=== PATIENT | female | born 1950 | race Hispanic/Latino ===

== ENCOUNTER 2021-08-28 19:13 | Inpatient (IN) | payer SELFPAY ==
[2021-08-28] VITALS (23 sets, daily range): BP systolic 73–149; BP diastolic 39–85; PULSE 84–100; RESP 13–22; TEMP 36.6–36.7; O2SAT 93–100
--- NOTE | ~2021-08-28 | XR_ITS ---
EXAMINATION: XR chest 1V portable EXAM DATE: 08/28/2021 21:44 INDICATION: Weakness, diarrhea and vomiting. Hypertension. TECHNIQUE: Portable AP frontal chest x-ray was obtained. There is no prior study for comparison. FINDINGS: The lungs are clear. There are no pleural effusions. The cardiomediastinal silhouette is within normal limits. There is no pneumothorax suspected. The bones and soft tissues are unremarkab le. IMPRESSION: No acute cardiopulmonary findings. Reviewed, dictated and finalized at location A. [employer]
--- NOTE | ~2021-08-28 | CT_ITS ---
EXAMINATION: CT abdomen pelvis wo con EXAM DATE: 08/28/2021 22:56 INDICATION: Nonlocalized abdominal pain. TECHNIQUE: Spiral CT of the abdomen and pelvis was performed without contrast. Axial, coronal and s agittal images of the abdomen and pelvis were reviewed. The dose-length product (DLP) for this exami nation was 328.96 mGy-cm. The exposure was tailored according to patient size (auto mA exposure cont rol), and iterative reconstruction (ASIR) was used as additional dose reduction technique. There is no prior study for comparison. FINDINGS: The liver, spleen, adrenal glands and pancreas are unremarkable. There are surgical clips in the gallbladder fossa. Some biliary duct dilation which is common finding following cholecystecto my. There is no nephrolithiasis or hydronephrosis. The uterus is not identified and has likely bee n surgically resected. The bladder is unremarkable. There is no retroperitoneal or pelvic lymphaden opathy. The appendix is normal. The stomach and small bowel are unremarkable. There is colonic fluid, corre late for diarrhea. No free intraperitoneal gas. The heart is normal in size. There are no perica rdial or pleural effusions. The lung bases are unremarkable. There are no osteoblastic or osteolyti c lesions identified. Moderate compression fracture of L1 which appears chronic. IMPRESSION: Colonic fluid, consider gastroenteritis or diarrhea. Reviewed, dictated and finalized at location A. [employer] MECH[employer]IC
--- NOTE | 2021-08-28 21:03 | PC.NURSE ---
Kittitian-speaking pt from [place], visiting family here. reports vomiting and diarrhea all day today. hx of colitis but ran out of medication and unsure of name. Photo of meds from [place] include Flagyl and Caolin/pectin. Leaving in 2 days to return home. No active vomiting/diarrhea.
--- NOTE | 2021-08-28 21:32 | PC.NURSE ---
While this RN in room with pt and registration, pt's BP noted as low. pt's laid supine and bp cuff rechecked multiple times. IV started and ED MD notified.
[2021-08-28] MEDS: SODIUM CHLORIDE 0.9% IV 2,000 ML/1,000 ML BAG 999 ML IV CONT (21:40)
[2021-08-28] MEDS: ONDANSETRON INJ 4 MG/2 ML VIAL IV PUSH (21:44)
[2021-08-28 21:54] LABS: Hematocrit 51.6 % (37.0-47.0); Hemoglobin 16.9 g/dL (12.0-15.0); Mean Corpuscular HGB Conc 32.8 g/dl (32-36); Mean Corpuscular Hemoglobin 29.3 pg (26-34); Mean Corpuscular Volume 89.4 fl (80-100); Mean Platelet Volume 10.9 fl (7.4-10.4); Platelet Count Result 279 k/mm3 (150-375); Red Blood Count 5.77 M/mm3 (4.2-5.4); Red Cell Distribution Width 14.1 % (11.5-14.5); White Blood Count 14.7 K/mm3 (4.5-10.0)
[2021-08-28 22:03] LABS: Lactic Acid Reflex 3.9 mmol/L (0.7-2.1)
[2021-08-28 22:04] LABS: Partial Thromboplastin Time 28.6 SECONDS (22.3-36.8); Prothrombin Time 12.6 Seconds (11.1-14.7)
[2021-08-28 22:07] LABS: Alanine Aminotransferase 54 U/L (4-35); Albumin Level 5.6 g/dL (3.5-5.1); Alkaline Phosphatase 120 U/L (38-126); Anion Gap 17 mmol/L (8-16); Aspartate Amino Transferase 57 U/L (14-36); Bilirubin,Total 0.7 mg/dL (0.2-1.3); Blood Urea Nitrogen 22 mg/dL (7-17); CRP 1.3 mg/dL (<1.0); Calcium 10.7 mg/dL (8.4-10.2); Carbon Dioxide 20 mmol/L (22-30); Chloride 101 mmol/L (98-107); Estimated CRCL calculation 18 ml/min; Estimated Glomerular Filt Rate 21; Glucose 195 mg/dL (65-110); Potassium 4.4 mmol/L (3.4-5.0); Sodium 138 mmol/L (137-145)
[2021-08-28 22:11] LABS: Band Neutrophils Percent 13 % (0-6); Lymphocytes Absolute Manual 0.73 K/mm3 (1.1-4.5); Monocytes Absolute Manual 0.58 K/mm3 (0.1-0.90); Monocytes Percent Manual 4 % (3-9); Neutrophils Absolute Manual 13.37 K/mm3 (1.7-7.2); Neutrophils Percent Manual 78 % (46-73); Platelet Estimate Adequate (Adequate); Total Cells Counted 100
--- NOTE | 2021-08-28 23:23 | PC.NURSE ---
2000 ml normal saline bolus given as ordered.
[2021-08-29] VITALS (47 sets, daily range): BP systolic 72–129; BP diastolic 50–99; PULSE 71–102; RESP 11–22; TEMP 36.6–37.2; O2SAT 93–100; BMI 27.3
[2021-08-29 00:04] LABS: Add Urine Microscopic? YES; Appearance Urine Cloudy (Clear); Bacteria Urine Trace /hpf; Bilirubin Urine Negative (Negative); Blood Urine 1+ (Negative); Calcium Oxalate Crystals Urine Present /hpf; Color Urine Yellow (Yellow); Glucose Urine UA 1+ mg/dL (Negative); Hyaline Casts Urine 50+ /lpf; Ketones Urine Negative (Negative); Leukocyte Esterase Ur Negative LEU/UL (Negative); Mucus Urine Moderate /lpf; Nitrate Urine Negative (Negative); Protein Urine 2+ mg/dL (Negative); Specific Grav Ur 1.011 (1.001-1.035); Squamous Epithelial Cell Urine Many /hpf (Few); Urobilinogen Urine Negative mg/dL (<2.0); WBC Urine 16-20 /hpf
[2021-08-29 00:51] LABS: Reflex Lactic Acid Yes or No Add Lactic
--- NOTE | 2021-08-29 01:13 | PM.IMHP ---
H&P: HPI History of Present Illness Date/Time: 08/29/21 01:13 Chief Complaint: Nausea/vomiting/diarrhea Narrative: This is a 71-year-old female with past medical history significant for colitis, patient resides in [facility], she is here is pending in the holidays with her sister who is at bedside. Patient has been in her usual state of health for the most part when she began having nausea, vomiting and diarrhea, several bowel movements a day and has now become incontinent of liquid watery like stools she denies any fevers, any rigors ,any chills, no dizziness, no lightheadedness, no syncope or near syncope. Preliminary workup was significant for creatinine of 2.3, WBC of 13,000, lactic acid of 3.9 AST/ALT 57/54 a urinalysis showed numerous wbc's present. Patient denies any cough, any sputum production, shortness of breath. A chest x-ray was clear. Decision has been made to place the patient in observation for further evaluation, management and treatment. Review of Systems Review of Systems: Nausea ,vomiting, diarrhea. Constitutional: Constitutional: Denies chills, Denies fatigue, Denies fever(s), Denies malaise, Denies night sweats, Denies poor appetite and Denies weakness Eyes: Eyes: Denies change in vision ENT: Denies dysphagia, Denies dizziness, Denies nasal congestion, Denies nasal discharge, Denies nasal obstruction and Denies odynophagia Cardiovascular: Cardiovascular: Denies radiating jaw, neck or arm pain, Denies palpitations, Denies dyspnea on exertion and Denies orthopnea Respiratory: Respiratory: Denies chest congestion, Denies cough, Denies excessive phlegm production and Denies dyspnea Gastrointestinal: Gastrointestinal: Reports abdominal pain, Denies melena, Denies dysphagia, Denies dyspepsia, Denies heartburn, Reports diarrhea, Reports nausea and Reports vomiting Genitourinary: Genitourinary: Denies dysuria Musculoskeletal: Musculoskeletal: Denies myalgias, Denies arthralgias and Denies joint swelling Integumentary/Breasts: Skin/Breast: Denies rash Neurologic: Denies dizziness, Denies focal weakness and Denies Sensory deficit (Neuro) Endocrine: Endocrine: Denies polyphagia, Denies polydipsia, Denies polyuria and Denies palpitations Hematologic/Lymphatic: Hematologic/Lymphatic: Reports no additional hematologic/lymphatic complaints and Reports as per HPI Allergic/Immunologic: Allergic/Immunologic: Reports no additional allergic/immunologic complaints and Reports as per HPI [facility] Family History Family History (Updated 08/29/21 @ 04:25 by Yoanna Prasad MD) Mother Diabetes mellitus Comments Patient resides in [facility] No history of tobacco or illicit drug use or alcohol. Meds Home Medications and Allergies Home Medications Medication Instructions Recorded Confirmed Type Unable to Obtain Home Medications 08/28/21 08/28/21 History Allergies Allergy/AdvReac Type Severity Reaction Status Date / Time No Known Allergies Allergy Verified 08/28/21 21:02 Vital Signs Vital Signs - 24 hr 08/28/21 19:40 08/28/21 21:00 08/28/21 21:01 Temperature 97.9 F Pulse Rate 89 Respiratory Rate 18 Blood Pressure 149/81 H 130/85 Pulse Oximetry 100 99 99 08/28/21 21:15 08/28/21 21:16 08/28/21 21:20 Temperature Pulse Rate 93 95 95 Respiratory Rate 21 H 17 21 H Blood Pressure 73/39 L 82/59 L Pulse Oximetry 97 97 95 08/28/21 21:23 08/28/21 21:24 08/28/21 21:30 Temperature Pulse Rate 96 93 93 Respiratory Rate 20 20 22 H Blood Pressure 74/45 L 95/54 L Pulse Oximetry 96 96 97 08/28/21 21:31 08/28/21 21:45 08/28/21 21:46 Temperature Pulse Rate 94 89 87 Respiratory Rate 21 H 18 18 Blood Pressure 103/55 L Pulse Oximetry 96 94 95 08/28/21 22:00 08/28/21 22:15 08/28/21 22:30 Temperature Pulse Rate 84 87 92 Respiratory Rate 14 15 16 Blood Pressure Pulse Oximetry 97 99 98 08/28/21 22:53 08/28/21 23:00 08/28/21 23:15 Temperature Pulse Ra
--- NOTE | 2021-08-29 01:22 | ED.NAVMDI ---
HPI - Nausea/Vomiting/Diarrhea General Chief complaint: Nausea/Vomiting/Diarrhea Stated complaint: n/v/d Time Seen by Provider: 08/28/21 21:20 History of Present Illness HPI Narrative: Patient is a 71-year-old female who presents ER with nausea/vomiting/diarrhea. Began over the last 24 hours. Family reports innumerable episodes of diarrhea and vomiting. Reports had history of colitis 3 months ago. Patient is currently in town from [facility] for the holidays. Patient has no reports of abdominal pain only intermittent cramping with the diarrhea. No syncope but does feel weak and lightheaded. Related Data Home Medications Medication Instructions Recorded Confirmed Unable to Obtain Home Medications 08/28/21 08/28/21 Allergies Allergy/AdvReac Type Severity Reaction Status Date / Time No Known Allergies Allergy Verified 08/28/21 21:02 Review of Systems Review of Systems: All systems reviewed & are unremarkable except as noted in HPI and below Constitutional: Constitutional: Denies chills, Reports fatigue, Denies fever(s) and Reports weakness ENT: Denies nasal congestion and Denies sore throat Cardiovascular: Cardiovascular: Denies chest pain, Denies rapid heart rate and Denies radiating jaw, neck or arm pain Respiratory: Respiratory: Denies cough and Denies dyspnea Gastrointestinal: Gastrointestinal: Reports abdominal pain, Reports diarrhea, Reports nausea and Reports vomiting Genitourinary: Genitourinary: Denies nocturia, Denies dysuria and Denies urinary incontinence [facility] Past Medical History Medical History (Updated 08/29/21 @ 07:16 by Mateo Kim MD) Borderline diabetes Colitis Surgical History Surgical History (Updated 08/29/21 @ 07:16 by Mateo Kim MD) History of cholecystectomy History of hysterectomy Family History Family History (Updated 08/29/21 @ 04:25 by Yoanna Prasad MD) Mother Diabetes mellitus Social History Social History (Updated 08/29/21 @ 07:11 by Mateo Kim MD) Smoking status: Never smoker Exam Narrative: GENERAL: Well-appearing, well-nourished, and in no acute distress. HEAD: Normocephalic, atraumatic. ENT: Mucous membranes moist. CHEST: Clear to auscultation. No respiratory distress. HEART: Regular rate and rhythm. Normal peripheral pulses. ABDOMEN: Soft, very mild epigastric and left upper quadrant tenderness without guarding nondistended, normal active bowel sounds. EXTREMITIES: Normal range of motion. No edema. SKIN: Warm, dry, no rash. NEURO: Alert and oriented x3. PSYCH: Normal mood and affect. Course Course Emergency Course: Patient and daughter informed of diagnosis and treatment plan. Patient received IV fluid boluses, she is also receiving IV antibiotics for colitis. Vital Signs Vital signs: Vital Signs Temperature 97.9 F 08/28/21 19:40 Pulse Rate 89 08/28/21 19:40 Respiratory Rate 18 08/28/21 19:40 Blood Pressure 149/81 H 08/28/21 19:40 Pulse Oximetry 100 08/28/21 19:40 Temperature 98.0 F 08/29/21 05:01 Pulse Rate 89 08/29/21 05:01 Respiratory Rate 15 08/29/21 05:01 Blood Pressure 81/52 L 08/29/21 05:01 Pulse Oximetry 95 08/29/21 05:01 MDM - Nausea/Vomiting/Diarrhea Lab Data Result diagrams: 08/28/21 21:41 08/28/21 21:41 Labs: Lab Results 08/28/21 08/28/21 08/28/21 Range/Units 21:41 21:41 21:41 WBC 14.7 H (4.5-10.0) K/mm3 RBC 5.77 H (4.2-5.4) M/mm3 Hgb 16.9 H (12.0-15.0) g/dL Hct 51.6 H (37.0-47.0) % MCV 89.4 (80-100) fl MCH 29.3 (26-34) pg MCHC 32.8 (32-36) g/dl RDW 14.1 (11.5-14.5) % Plt Count 279 (150-375) k/mm3 MPV 10.9 H (7.4-10.4) fl Immature Gran % (Auto) Not Reportable Neut % (Auto) Not Reportable Lymph % (Auto) Not Reportable Woods % (Auto) Not Reportable Eos % (Auto) Not Reportable Baso % (Auto) Not Reportable Lymph # (Auto) Not Reportabl
[2021-08-29 01:23] LABS: Lactic Acid 1.3 mmol/L (0.7-2.1)
[2021-08-29] MEDS: metroNIDAZOLE 500 MG/ISO 100ML 500 MG/100 ML BAG 100 MG IVPB ×5 (01:39→23:02)
[2021-08-29] MEDS: levoFLOXacin 500 MG/D5W 100 ML 500 MG/100 ML BAG 100 MG IVPB (02:44)
[2021-08-29] MEDS: SODIUM CHLORIDE 0.9% IV 1,000 ML 125 ML IV CONT ×3 (04:47→21:15)
--- NOTE | 2021-08-29 05:30 | PC.NURSE ---
Pt has had NO episodes of nvd since arrival in ED.
--- NOTE | 2021-08-29 07:20 | PC.NURSE ---
Dr. Moran called and reports that the ED doctor should manage that patient and that he is refusing.
--- NOTE | 2021-08-29 07:50 | PC.NURSE ---
Dr. Moran contacted due to patient's blood pressure, states She must go to the ICU for that and the ICU doctor needs to be called.
[2021-08-29] MEDS: PANTOPRAZOLE SODIUM IV 40 MG VIAL IV PUSH (08:37)
[2021-08-29] MEDS: HEPARIN SODIUM 5,000 UNITS/ML VIAL 5000 UNITS SUB-Q ×2 (08:37→21:25)
[2021-08-29] MEDS: SODIUM CHLORIDE 0.9% IV 1,000 ML 1000 ML (08:37)
--- NOTE | 2021-08-29 11:29 | PM.IMPN ---
Progress Note: A&P Assessment and Plan (1) Nausea vomiting and diarrhea: Code(s): R11.2 - Nausea with vomiting, unspecified; R19.7 - Diarrhea, unspecified Status: Acute Assessment and Plan: CT of abdomen and pelvis reviewed Supportive care Clear liquid diet and advanced as tolerated (2) Colitis: Code(s): K52.9 - Noninfective gastroenteritis and colitis, unspecified Status: Acute Assessment and Plan: Patient has history of colitis unclear which type Patient has been placed on levo and Flagyl Continue to monitor (3) ELVIN (acute kidney injury): Code(s): N17.9 - Acute kidney failure, unspecified Status: Acute Assessment and Plan: Likely to be pre renal azotemia IV fluids ongoing Repeat BMP in the morning Renal ultrasound in a.m. (4) Dehydration: Code(s): E86.0 - Dehydration Status: Acute Assessment and Plan: Push oral fluids as needed Receiving IV fluids (5) Urinary tract infection: Code(s): N39.0 - Urinary tract infection, site not specified Status: Acute Assessment and Plan: Patient has been started on levofloxacin Await cultures Subjective Date/time seen: 08/29/21 11:29 Patient was seen during the morning rounds today. Mild abdominal pain, mild nausea, no vomiting. No chest pain, no shortness of breaths. Mood stable. Review of Systems Constitutional: Constitutional: Denies chills, Denies fatigue, Denies fever(s), Denies malaise, Denies night sweats, Denies poor appetite and Denies weakness Eyes: Eyes: Denies change in vision ENT: Denies dysphagia, Denies dizziness, Denies nasal congestion, Denies nasal discharge, Denies nasal obstruction and Denies odynophagia Cardiovascular: Cardiovascular: Denies radiating jaw, neck or arm pain, Denies palpitations, Denies dyspnea, Denies dyspnea on exertion and Denies orthopnea Respiratory: Respiratory: Denies chest congestion, Denies cough, Denies excessive phlegm production, Denies dyspnea and Denies dyspnea on exertion Gastrointestinal: Gastrointestinal: Reports abdominal pain, Denies melena, Denies dysphagia, Denies dyspepsia, Denies heartburn, Reports diarrhea, Reports nausea, Denies odynophagia and Reports vomiting Genitourinary: Genitourinary: Denies dysuria Musculoskeletal: Musculoskeletal: Denies myalgias, Denies arthralgias and Denies joint swelling Integumentary/Breasts: Skin/Breast: Denies rash Neurologic: Denies dizziness, Denies focal weakness, Denies Sensory deficit (Neuro) and Denies weakness Endocrine: Endocrine: Denies fatigue, Denies polyphagia, Denies polydipsia, Denies polyuria and Denies palpitations Hematologic/Lymphatic: Hematologic/Lymphatic: Reports no additional hematologic/lymphatic complaints and Reports as per HPI Allergic/Immunologic: Allergic/Immunologic: Reports no additional allergic/immunologic complaints and Reports as per HPI Exam Const: General: cooperative, comfortable, no acute distress, well developed, alert, awake, Physically active and tired appearing; No acute distress Nutritional Appearance: average body habitus Orientation/consciousness: patient oriented x3 HENMT: Head: normal to inspection, normocephalic and atraumatic Ears: hearing grossly normal bilaterally General nose exam: Normal external nose present Face and sinus: normal facial exam Mouth: Yes dry mucous membranes Teeth and gingiva: dentition normal Eyes: General: appearance normal, both eyes and all related structures Alignment and Position: alignment normal Sclera: sclerae normal Pupils: Equal, round and reactive pupils present EOM: EOMs intact bilaterally Neck: Neck: normal visual inspection, full ROM, no lymphadenopathy, supple and no JVD Thyroid: thyroid normal Lymphatic: no lymphadenopathy noted Resp: Effort & Inspection: normal respiratory effort and able to speak in complete sentences Auscultation: clear to auscultation bilaterally, no crackles, no rales,
[2021-08-29 12:18] LABS: Glucose Point of Care 82 mg/dl (65-105)
--- NOTE | 2021-08-29 13:33 | PC.NURSE ---
Patient boarding in ED - admission completed. Sister Connie at bedside and is able to translate for patient at this time.
[2021-08-29 16:56] LABS: Glucose Point of Care 92 mg/dl (65-105)
--- NOTE | 2021-08-29 18:34 | PC.NURSE ---
This patient, Virginia Farah, was received from [ ED ] on 08/29/21 at 1640. Patient/family oriented to unit policies and routines
[2021-08-29 22:31] LABS: Glucose Point of Care 104 mg/dl (65-105)
[2021-08-30] VITALS (9 sets, daily range): BP systolic 128–151; BP diastolic 64–78; PULSE 62–80; RESP 16–21; TEMP 35.8–36.8; O2SAT 96–100
[2021-08-30] MEDS: metroNIDAZOLE 500 MG/ISO 100ML 500 MG/100 ML BAG 100 MG IVPB ×3 (05:35→17:08)
[2021-08-30 06:25] LABS: Basophils Percent Auto 0.8 % (0.2-1.2); Eosinophils Absolute Auto 0.1 K/mm3 (0-0.3); Hematocrit 38.7 % (37.0-47.0); Hemoglobin 12.6 g/dL (12.0-15.0); Immature Granulocyte Absolute 0.01 K/mm3 (0.00-0.031); Immature Granulocyte Percent A 0.3 % (0-0.5); Lymphocytes Absolute Auto 1.56 K/mm3 (0.9-3.2); Lymphocytes Percent Auto 39.4 % (18.3-44.2); Mean Corpuscular HGB Conc 32.6 g/dl (32-36); Mean Corpuscular Hemoglobin 29.8 pg (26-34); Mean Corpuscular Volume 91.5 fl (80-100); Mean Platelet Volume 10.7 fl (7.4-10.4); Monocytes Absolute Auto 0.4 K/mm3 (0.1-0.6); Monocytes Percent Auto 9.3 % (2.6-8.5); Neutrophils Absolute Auto 1.9 K/mm3 (1.3-6.7); Neutrophils Percent Auto 47.2 % (45.5-73.1); Platelet Count Result 164 k/mm3 (150-375); Red Blood Count 4.23 M/mm3 (4.2-5.4); Red Cell Distribution Width 14.4 % (11.5-14.5)
[2021-08-30] MEDS: SODIUM CHLORIDE 0.9% IV 1,000 ML 125 ML IV CONT ×2 (06:40→22:11)
[2021-08-30 06:50] LABS: Alanine Aminotransferase 29 U/L (4-35); Albumin Level 3.4 g/dL (3.5-5.1); Alkaline Phosphatase 67 U/L (38-126); Anion Gap 2 mmol/L (8-16); Aspartate Amino Transferase 34 U/L (14-36); Bilirubin,Total 0.3 mg/dL (0.2-1.3); Blood Urea Nitrogen 13 mg/dL (7-17); Calcium 8.5 mg/dL (8.4-10.2); Carbon Dioxide 21 mmol/L (22-30); Chloride 114 mmol/L (98-107); Estimated CRCL calculation 50 ml/min; Estimated Glomerular Filt Rate > 60; Glucose 86 mg/dL (65-110); Potassium 3.7 mmol/L (3.4-5.0); Sodium 137 mmol/L (137-145)
[2021-08-30 07:48] LABS: Glucose Point of Care 78 mg/dl (65-105)
[2021-08-30] MEDS: HEPARIN SODIUM 5,000 UNITS/ML VIAL 5000 UNITS SUB-Q ×2 (09:49→22:11)
[2021-08-30 12:14] LABS: Glucose Point of Care 102 mg/dl (65-105)
[2021-08-30] MEDS: PANTOPRAZOLE SODIUM IV 40 MG VIAL IV PUSH (13:05)
--- NOTE | 2021-08-30 13:22 | PC.NURSE ---
This patient, Virginia Vasquez, was transferred to [facility] on 08/30/21 at 1322. Personal belongings sent with patient. Report given to DENZEL Parmar. Appropriate documentation sent with patient.
--- NOTE | 2021-08-30 13:29 | PM.IMPN ---
Progress Note: A&P Assessment and Plan (1) Nausea vomiting and diarrhea: Code(s): R11.2 - Nausea with vomiting, unspecified; R19.7 - Diarrhea, unspecified Status: Acute Assessment and Plan: CT of abdomen and pelvis reviewed Supportive care Clear liquid diet and advanced as tolerated (2) Colitis: Code(s): K52.9 - Noninfective gastroenteritis and colitis, unspecified Status: Acute Assessment and Plan: Patient has history of colitis unclear which type Patient has been placed on levo and Flagyl Continue to monitor (3) ELVIN (acute kidney injury): Code(s): N17.9 - Acute kidney failure, unspecified Status: Acute Assessment and Plan: Likely to be pre renal azotemia IV fluids ongoing Repeat BMP in the morning Renal ultrasound in a.m. (4) Dehydration: Code(s): E86.0 - Dehydration Status: Acute Assessment and Plan: Push oral fluids as needed Receiving IV fluids (5) Urinary tract infection: Code(s): N39.0 - Urinary tract infection, site not specified Status: Acute Assessment and Plan: Patient has been started on levofloxacin Await cultures. 08/30/2021 Patient was much better. Will continue with current treatment. Start p.o. diet. Transfer to floor. If stays okay discharge home in the morning. Subjective Date/time seen: 08/30/21 13:29 Patient was seen during the morning rounds today. Diarrhea is slightly better. No shortness of breath or chest pain. Mood stable. Review of Systems Constitutional: Constitutional: Denies chills, Denies fatigue, Denies fever(s), Denies malaise, Denies night sweats, Denies poor appetite and Denies weakness Eyes: Eyes: Denies change in vision ENT: Denies dysphagia, Denies dizziness, Denies nasal congestion, Denies nasal discharge, Denies nasal obstruction and Denies odynophagia Cardiovascular: Cardiovascular: Denies radiating jaw, neck or arm pain, Denies palpitations, Denies dyspnea, Denies dyspnea on exertion and Denies orthopnea Respiratory: Respiratory: Denies chest congestion, Denies cough, Denies excessive phlegm production, Denies dyspnea and Denies dyspnea on exertion Gastrointestinal: Gastrointestinal: Reports abdominal pain, Denies melena, Denies dysphagia, Denies dyspepsia, Denies heartburn, Reports diarrhea, Reports nausea, Denies odynophagia and Reports vomiting Genitourinary: Genitourinary: Denies dysuria Musculoskeletal: Musculoskeletal: Denies myalgias, Denies arthralgias and Denies joint swelling Integumentary/Breasts: Skin/Breast: Denies rash Neurologic: Denies dizziness, Denies focal weakness, Denies Sensory deficit (Neuro) and Denies weakness Endocrine: Endocrine: Denies fatigue, Denies polyphagia, Denies polydipsia, Denies polyuria and Denies palpitations Hematologic/Lymphatic: Hematologic/Lymphatic: Reports no additional hematologic/lymphatic complaints and Reports as per HPI Allergic/Immunologic: Allergic/Immunologic: Reports no additional allergic/immunologic complaints and Reports as per HPI Exam Const: General: cooperative, comfortable, no acute distress, well developed, alert, awake, Physically active and tired appearing; No acute distress Nutritional Appearance: average body habitus Orientation/consciousness: patient oriented x3 HENMT: Head: normal to inspection, normocephalic and atraumatic Ears: hearing grossly normal bilaterally General nose exam: Normal external nose present Face and sinus: normal facial exam Mouth: Yes dry mucous membranes Teeth and gingiva: dentition normal Eyes: General: appearance normal, both eyes and all related structures Alignment and Position: alignment normal Sclera: sclerae normal Pupils: Equal, round and reactive pupils present EOM: EOMs intact bilaterally Neck: Neck: normal visual inspection, full ROM, no lymphadenopathy, supple and no JVD Thyroid: thyroid normal Lymphatic: no lymphadenopathy noted Resp: Effort & Inspectio
--- NOTE | 2021-08-30 16:28 | PC.NURSE ---
This patient, Virginia Vasquez, was received from [facility] on 08/30/21 at 1345. Patient/family oriented to unit policies and routines
[2021-08-30 16:41] LABS: Glucose Point of Care 95 mg/dl (65-105)
[2021-08-30] MEDS: levoFLOXacin 500 MG/D5W 100 ML 500 MG/100 ML BAG 100 MG IVPB (22:11)
[2021-08-30 22:58] LABS: Glucose Point of Care 87 mg/dl (65-105)
[2021-08-31] MEDS: metroNIDAZOLE 500 MG/ISO 100ML 500 MG/100 ML BAG 100 MG IVPB ×5 (00:16→23:50)
[2021-08-31 06:00] VITALS: BP 127/56; PULSE 66; RESP 20; TEMP 36.3; O2SAT 98
[2021-08-31 07:55] LABS: Glucose Point of Care 90 mg/dl (65-105)
[2021-08-31 08:00] VITALS: BP 148/75; PULSE 72; RESP 20; TEMP 36.4; O2SAT 97
--- NOTE | 2021-08-31 09:29 | PM.DS ---
DS: Admitting Diagnosis Discharge Date 08/31/2021 Admitting Diagnosis Gastroenteritis UTI DS: Discharge Diagnosis Discharge Diagnosis (1) Nausea vomiting and diarrhea: Code(s): R11.2 - Nausea with vomiting, unspecified; R19.7 - Diarrhea, unspecified Status: Acute Assessment and Plan: CT of abdomen and pelvis reviewed Supportive care Clear liquid diet and advanced as tolerated (2) Colitis: Code(s): K52.9 - Noninfective gastroenteritis and colitis, unspecified Status: Acute Assessment and Plan: Patient has history of colitis unclear which type Patient has been placed on levo and Flagyl Continue to monitor (3) ELVIN (acute kidney injury): Code(s): N17.9 - Acute kidney failure, unspecified Status: Acute Assessment and Plan: Likely to be pre renal azotemia IV fluids ongoing Repeat BMP in the morning Renal ultrasound in a.m. (4) Dehydration: Code(s): E86.0 - Dehydration Status: Acute Assessment and Plan: Push oral fluids as needed Receiving IV fluids (5) Urinary tract infection: Code(s): N39.0 - Urinary tract infection, site not specified Status: Acute Assessment and Plan: Patient has been started on levofloxacin Await cultures. 08/30/2021 Patient was much better. Will continue with current treatment. Start p.o. diet. Transfer to floor. If stays okay discharge home in the morning. DS: Summary Hospital Course Reason for hospitalization: Gastroenteritis UTI Hospital Course: Patient is 69 years old female was admitted complains any nausea vomiting or diarrhea. Patient was dehydrated. Patient was given IV fluid. Patient was found to have gastroenteritis and urine tract infection. Patient was given Levaquin and Flagyl. Patient urine culture shows patient with E coli infection. Today patient is feeling better so patient discharged home stable condition, follow-up primary care physician outpatient scheduled next week. Status at Discharge Cognitive/behavioral status at discharge: Stable Functional status at discharge: independent ambulation Overall status at discharge: patient is back to baseline Time Spent with Patient Time attestation: Total time spent providing and/or coordinating discharge services: Time spent: Less than 30 minutes Exam Const: General: cooperative, comfortable, no acute distress, well developed, alert, awake, Physically active and tired appearing; No acute distress Nutritional Appearance: average body habitus Orientation/consciousness: patient oriented x3 HENMT: Head: normal to inspection, normocephalic and atraumatic Ears: hearing grossly normal bilaterally General nose exam: Normal external nose present Face and sinus: normal facial exam Mouth: Yes dry mucous membranes Teeth and gingiva: dentition normal Eyes: General: appearance normal, both eyes and all related structures Alignment and Position: alignment normal Sclera: sclerae normal Pupils: Equal, round and reactive pupils present EOM: EOMs intact bilaterally Neck: Neck: normal visual inspection, full ROM, no lymphadenopathy, supple and no JVD Thyroid: thyroid normal Lymphatic: no lymphadenopathy noted Resp: Effort & Inspection: normal respiratory effort and able to speak in complete sentences Auscultation: clear to auscultation bilaterally, no crackles, no rales, no rhonchi and no wheezes Cardio: Jugular venous distension: no JVD Rate: regular rate Rhythm: regular rhythm Heart sounds: S1 normal heart sound present and S2 normal heart sound present GI: Inspection: normal to inspection and non-distended Auscultation: normal bowel sounds : General: Yes deferred Skin: General skin exam: normal color Rashes: no rashes Wounds: no wounds Neuro: General: patient oriented x3 and CN's II-XI intact bilaterally Cranial nerves: Yes CN's II-XII intact bilaterally and Yes Equal, round and reactive pupils present Cognition (Neuro): normal cognit
[2021-08-31] MEDS: HEPARIN SODIUM 5,000 UNITS/ML VIAL 5000 UNITS SUB-Q ×2 (09:33→21:16)
[2021-08-31] MEDS: SODIUM CHLORIDE 0.9% IV 1,000 ML 125 ML IV CONT ×2 (09:33→21:16)
[2021-08-31] MEDS: PANTOPRAZOLE SODIUM IV 40 MG VIAL IV PUSH (09:34)
[2021-08-31 11:09] LABS: Glucose Point of Care 117 mg/dl (65-105)
--- NOTE | 2021-08-31 12:28 | PC.NURSE ---
Questions reviewed, assessment performed, and patient informed of lab results, test results etc. via profiling machine set up operator [id number] #[id number]. Patient was informed via profiling machine set up operator that the plan was for the patient to be discharged home today but per the patient she doesn't feel ready or comfortable enough to go home at this time. The patient stated that she would stay one more day in order to get continued IV fluids, and IV antibiotic therapy and plan to discharge tomorrow home on oral antibiotics. Patient stated that she understood everything that was explained to her via the profiling machine set up operator. Informed the patient that if she has any questions or concerns she can tell this nurse at anytime.
--- NOTE | 2021-08-31 12:46 | PM.IMPN ---
Progress Note: A&P Assessment and Plan (1) Nausea vomiting and diarrhea: Code(s): R11.2 - Nausea with vomiting, unspecified; R19.7 - Diarrhea, unspecified Status: Acute Assessment and Plan: CT of abdomen and pelvis reviewed Supportive care Clear liquid diet and advanced as tolerated (2) Colitis: Code(s): K52.9 - Noninfective gastroenteritis and colitis, unspecified Status: Acute Assessment and Plan: Patient has history of colitis unclear which type Patient has been placed on levo and Flagyl Continue to monitor (3) ELVIN (acute kidney injury): Code(s): N17.9 - Acute kidney failure, unspecified Status: Acute Assessment and Plan: Likely to be pre renal azotemia IV fluids ongoing Repeat BMP in the morning Renal ultrasound in a.m. (4) Dehydration: Code(s): E86.0 - Dehydration Status: Acute Assessment and Plan: Push oral fluids as needed Receiving IV fluids (5) Urinary tract infection: Code(s): N39.0 - Urinary tract infection, site not specified Status: Acute Assessment and Plan: Patient has been started on levofloxacin Await cultures. 08/30/2021 Patient was much better. Will continue with current treatment. Start p.o. diet. Transfer to floor. If stays okay discharge home in the morning. 08/31/2021 Clinically improving. Continue current treatment. Increase diet as tolerated, possible discharge in the morning Subjective Date/time seen: 08/31/21 12:46 Patient was seen during morning rounds. Still a mild abdominal pain, mild nausea no vomiting. No shortness of breath or chest pain. Mood stable. Review of Systems Constitutional: Constitutional: Denies chills, Denies fatigue, Denies fever(s), Denies malaise, Denies night sweats, Denies poor appetite and Denies weakness Eyes: Eyes: Denies change in vision ENT: Denies dysphagia, Denies dizziness, Denies nasal congestion, Denies nasal discharge, Denies nasal obstruction and Denies odynophagia Cardiovascular: Cardiovascular: Denies radiating jaw, neck or arm pain, Denies palpitations, Denies dyspnea, Denies dyspnea on exertion and Denies orthopnea Respiratory: Respiratory: Denies chest congestion, Denies cough, Denies excessive phlegm production, Denies dyspnea and Denies dyspnea on exertion Gastrointestinal: Gastrointestinal: Reports abdominal pain, Denies melena, Denies dysphagia, Denies dyspepsia, Denies heartburn, Reports diarrhea, Reports nausea, Denies odynophagia and Reports vomiting Genitourinary: Genitourinary: Denies dysuria Musculoskeletal: Musculoskeletal: Denies myalgias, Denies arthralgias and Denies joint swelling Integumentary/Breasts: Skin/Breast: Denies rash Neurologic: Denies dizziness, Denies focal weakness, Denies Sensory deficit (Neuro) and Denies weakness Endocrine: Endocrine: Denies fatigue, Denies polyphagia, Denies polydipsia, Denies polyuria and Denies palpitations Hematologic/Lymphatic: Hematologic/Lymphatic: Reports no additional hematologic/lymphatic complaints and Reports as per HPI Allergic/Immunologic: Allergic/Immunologic: Reports no additional allergic/immunologic complaints and Reports as per HPI Exam Const: General: cooperative, comfortable, no acute distress, well developed, alert, awake, Physically active and tired appearing; No acute distress Nutritional Appearance: average body habitus Orientation/consciousness: patient oriented x3 HENMT: Head: normal to inspection, normocephalic and atraumatic Ears: hearing grossly normal bilaterally General nose exam: Normal external nose present Face and sinus: normal facial exam Mouth: Yes dry mucous membranes Teeth and gingiva: dentition normal Eyes: General: appearance normal, both eyes and all related structures Alignment and Position: alignment normal Sclera: sclerae normal Pupils: Equal, round and reactive pupils present EOM: EOMs intact bilaterally Neck: Neck: normal visual inspect
[2021-08-31] MEDS: DICYCLOMINE HCL 10 MG CAPSULE 20 MG PO ×2 (13:34→21:17)
[2021-08-31 16:00] VITALS: BP 145/80; PULSE 73; RESP 18; TEMP 36.4; O2SAT 97
[2021-08-31 16:05] LABS: Glucose Point of Care 96 mg/dl (65-105)
[2021-08-31 21:15] VITALS: BP 149/79; PULSE 72; RESP 12; TEMP 36.4
[2021-09-01 03:17] LABS: Glucose Point of Care 107 mg/dl (65-105)
[2021-09-01 05:00] VITALS: BP 139/73; PULSE 66; RESP 18; TEMP 37.1; O2SAT 97
[2021-09-01] MEDS: metroNIDAZOLE 500 MG/ISO 100ML 500 MG/100 ML BAG 100 MG IVPB (06:15)
[2021-09-01] MEDS: PANTOPRAZOLE SODIUM IV 40 MG VIAL IV PUSH (08:14)
[2021-09-01] MEDS: HEPARIN SODIUM 5,000 UNITS/ML VIAL 5000 UNITS SUB-Q (08:14)
[2021-09-01 09:24] LABS: Glucose Point of Care 123 mg/dl (65-105)
--- NOTE | 2021-09-01 10:11 | PC.NURSE ---
This nurse used the Lon Sash Assembler to explain all of the discharge instructions to the patient. Sash Assembler Marcelino #[id number] was used to review all of the discharge instructions and answered all questions and concerned with the patient.
== END 2021-09-01 11:15 | disposition home or self-care (01) | DRG 249 ==
LOC: ANHED 21:36 → ANHIMU 08-29 03:09 → ANH2MED 08-31 09:29 → ANHIMU 09-06 16:32
PROVIDERS: Admitting Provider Internal Medicine; Emergency Provider Emergency Medicine; Visit Provider Internal Medicine
DX: K52.9 Noninfective gastroenteritis and colitis, unspecified (principal); N39.0 Urinary tract infection, site not specified; B96.20 Unspecified Escherichia coli [E. coli] as the cause of diseases classified elsewhere; N17.9 Acute kidney failure, unspecified; E86.0 Dehydration; R73.03 Prediabetes; Z23 Encounter for immunization; Z90.49 Acquired absence of other specified parts of digestive tract; Z90.710 Acquired absence of both cervix and uterus
CPT/HCPCS: 36415; 71045; 74176; 80053; 81001; 82948; 83605; 85025; 85610; 85730; 86140; 87040; 87077; 87086; 87088; 87186; 87324; 90471; 90653; 96361; 96365; 96366; 96367; 96374; 96375; 99285; A9270; C9113; G0008; G0378; G0379; J1644; J1956; J2405; J2543; J7030